=== PATIENT | female | born 1955 | race Caucasian/White ===

== ENCOUNTER 2016-07-10 19:12 | Emergency (ER) | payer OTHER ==
[~2016-07-10] VITALS: Ht 149.8 cm; Wt 72.6 kg
[~2016-07-10 19:12] MED LIST: ALBUTEROL0.09 MG/A2 IH; ANAPROX DS550 MG PO; CLARITIN10 MG PO; ESTERIFIED ESTR PO; FLONASE0.05 MG/AC NS; IBU-8800 MG PO; LEVAQUIN750 MG PO; LOMOTIL 0.025 M1 TAB PO; PEPCID20 MG PO; PREDNICOT20 MG PO; PREDNISONE20 MG PO; PREDNISONE50 MG PO; SINGULAIR10 MG PO; ULTRAM50 MG PO; ZOFRAN ODT8 MG PO
[2016-07-10] MEDS ORDERED: SYNTHROID25 MCG PO (19:41)
[2016-07-10] MEDS ORDERED: ZITHROMAX250 MG PO (21:51)
[2016-07-10] MEDS ORDERED: PREDNISONE20 M1 PO (21:51)
[2016-07-10] MEDS ORDERED: ZYRTEC-D 5 MG-11 TE1 PO (21:51)
[2016-07-10] MEDS ORDERED: MUCINEX DM 30/61 TAB PO (21:59)
[2016-07-10] MEDS ORDERED: TAMIFLU 75MG CA75 MG PO (22:09)
== END 2016-07-10 22:12 | disposition home or self-care (01) ==
LOC: ED 19:12
DX: J20.9 Acute bronchitis, unspecified (principal); J45.909 Unspecified asthma, uncomplicated; J32.9 Chronic sinusitis, unspecified; Z90.49 Acquired absence of other specified parts of digestive tract; Z90.711 Acquired absence of uterus with remaining cervical stump; Z88.0 Allergy status to penicillin; Z88.6 Allergy status to analgesic agent; Z88.8 Allergy status to other drugs, medicaments and biological substances; Z79.899 Other long term (current) drug therapy

== ENCOUNTER → 2016-10-13 | Outpatient (CLI) | payer OTHER ==
[~2016-10-13] MED LIST changes: +MUCINEX DM 30/61 TAB PO; +PREDNISONE20 M1 PO; +SYNTHROID25 MCG PO; +TAMIFLU 75MG CA75 MG PO; +ZITHROMAX250 MG PO; +ZYRTEC-D 5 MG-11 TE1 PO
== END | disposition home or self-care (01) ==
LOC: LAB 11:23
DX: E03.9 Hypothyroidism, unspecified (principal); E55.9 Vitamin D deficiency, unspecified

== ENCOUNTER 2022-03-11 11:48 | Inpatient (IN) | payer OTHER ==
[~2022-03-11] VITALS: Ht 149.9 cm; Wt 72.6 kg
[2022-03-11 12:00] VITALS: BP 155/95
[2022-03-11 13:07] LABS: BASO % 0.1 % (0.0-1.0); EOS % 0.3 % (1.0-4.0); HEMATOCRIT 43.9 % (37.0-47.0); LYMPH # 1.3 10*3/uL (1.3-4.4); LYMPH % 14.6 % (27.0-41.0); MEAN CELL VOLUME 87.8 fl (81.0-99.0); MEAN CORPUSCULAR HGB CONC 34.2 g/dl (33.0-37.0); MEAN PLATELET VOLUME 9.3 fl (9.6-12.3); MONO # 0.5 10*3/uL (0.1-1.0); MONO % 5.4 % (3.0-9.0); NEUT # 7.1 10*3/uL (2.3-7.9); NEUT % 79.4 % (47.0-73.0); PLATELET COUNT AUTOMATED 282 10*3/uL (130-400); RED CELL DISTRI WIDTH 12.8 % (0-14.5); WHITE BLOOD COUNT 8.9 10*3/uL (4.8-10.8)
[2022-03-11 13:23] LABS: ACT PARTIAL THROMBO TIME 25.6 SECONDS (20.0-32.1); INTERNATIONAL NORM RATIO 0.9 (2.0-3.5)
[2022-03-11 13:24] LABS: ALKALINE PHOSPHATASE 80 U/L (45-117); BUN 12 mg/dl (7-24); CHLORIDE 102 mmol/L (98-107); CREATININE 0.86 mg/dL (0.55-1.02); LIPASE 90 U/L (73-393); POTASSIUM 3.6 mmol/L (3.5-5.1); SGPT/ALT 21 U/L (12-78); SODIUM 136 mmol/L (136-145); TOTAL PROTEIN 7.9 gm/dL (6.4-8.2)
[2022-03-11 13:37] LABS: BILIRUBIN Negative (Negative); BLOOD Negative (Negative); CLARITY Clear (Clear); COLOR Yellow (Yellow); GLUCOSE Negative (Negative); KETONE 1+ (Negative); LEUKO ESTERASE Negative (Negative); NITRITE Negative (Negative); PH 5.5 (4.5-8.0); UROBILINOGEN 0.2 E.U./dl (0.0-1.0)
[2022-03-11 13:47] LABS: MUCOUS TRACE
[2022-03-11 18:15] VITALS: BP 154/74
[2022-03-11 20:00] VITALS: BP 170/73
[2022-03-11 22:30] VITALS: BP 148/86
[2022-03-12] VITALS: BP 158/81
[2022-03-12 06:29] LABS: BASO % 0.3 % (0.0-1.0); EOS # 0.1 10*3/uL (0.0-0.4); EOS % 0.7 % (1.0-4.0); HEMATOCRIT 40.2 % (37.0-47.0); LYMPH # 1.6 10*3/uL (1.3-4.4); LYMPH % 16.5 % (27.0-41.0); MEAN CELL VOLUME 89.3 fl (81.0-99.0); MEAN CORPUSCULAR HGB 30.7 pg (27.0-31.0); MEAN CORPUSCULAR HGB CONC 34.3 g/dl (33.0-37.0); MEAN PLATELET VOLUME 9.3 fl (9.6-12.3); MONO # 0.8 10*3/uL (0.1-1.0); MONO % 8.1 % (3.0-9.0); NEUT # 7.2 10*3/uL (2.3-7.9); NEUT % 74.1 % (47.0-73.0); PLATELET COUNT AUTOMATED 273 10*3/uL (130-400); RED CELL DISTRI WIDTH 12.8 % (0-14.5); WHITE BLOOD COUNT 9.7 10*3/uL (4.8-10.8)
[2022-03-12 06:34] LABS: ACT PARTIAL THROMBO TIME 24.9 SECONDS (20.0-32.1); INTERNATIONAL NORM RATIO 0.9 (2.0-3.5)
[2022-03-12 06:39] LABS: ALKALINE PHOSPHATASE 71 U/L (45-117); BUN 12 mg/dl (7-24); CHLORIDE 106 mmol/L (98-107); CHOLESTEROL 195 mg/dL (<200); CREATININE 0.73 mg/dL (0.55-1.02); FREE T4 1.07 ng/dl (0.76-1.46); LDL CHOLESTEROL 107 mg/dL (9-159); POTASSIUM 3.7 mmol/L (3.5-5.1); SGPT/ALT 17 U/L (12-78); SODIUM 139 mmol/L (136-145); TOTAL PROTEIN 6.9 gm/dL (6.4-8.2); TRIGLYCERIDES 126 mg/dl (<150)
[2022-03-12 06:44] LABS: THYROID STIM HORMONE (HS) 0.755 uIU/ml (0.358-4.75)
[2022-03-12 08:00] VITALS: BP 155/68
[2022-03-12 12:00] VITALS: BP 154/86
[2022-03-12 20:00] VITALS: BP 146/67
[2022-03-13] VITALS: BP 137/68
[2022-03-13 06:50] LABS: BASO % 0.4 % (0.0-1.0); EOS # 0.2 10*3/uL (0.0-0.4); LYMPH # 2.5 10*3/uL (1.3-4.4); LYMPH % 29.7 % (27.0-41.0); MEAN CELL VOLUME 89.8 fl (81.0-99.0); MEAN CORPUSCULAR HGB 30.8 pg (27.0-31.0); MEAN CORPUSCULAR HGB CONC 34.3 g/dl (33.0-37.0); MEAN PLATELET VOLUME 9.2 fl (9.6-12.3); MONO # 0.7 10*3/uL (0.1-1.0); MONO % 8.4 % (3.0-9.0); NEUT # 4.9 10*3/uL (2.3-7.9); NEUT % 59.3 % (47.0-73.0); PLATELET COUNT AUTOMATED 244 10*3/uL (130-400); RED BLOOD COUNT 4.12 10*6/uL (4.10-5.10); RED CELL DISTRI WIDTH 12.9 % (0-14.5); WHITE BLOOD COUNT 8.3 10*3/uL (4.8-10.8)
[2022-03-13 07:02] LABS: BUN 16 mg/dl (7-24); CHLORIDE 108 mmol/L (98-107); CREATININE 0.59 mg/dL (0.55-1.02); POTASSIUM 3.1 mmol/L (3.5-5.1); SODIUM 140 mmol/L (136-145)
[2022-03-13 08:00] VITALS: BP 151/74
[2022-03-13 12:00] VITALS: BP 130/51
[2022-03-13] MEDS ORDERED: ZESTRIL10 MG PO (12:28)
== END 2022-03-13 19:14 | disposition home or self-care (01) | DRG 389 ==
LOC: ED 11:48 → 5E 16:41 → EDHOLD 16:41 → 5E 17:35
PROVIDERS: Family Medicine; Student in an Organized Health Care Education/Training Program; ADMIT Internal Medicine; ATTEND Internal Medicine
PROC: 0D9670Z Drainage of Stomach with Drainage Device, Via Natural or Artificial Opening (ICD-10-PCS; principal; 2022-03-11)
DX: K56.50 Intestinal adhesions [bands], unspecified as to partial versus complete obstruction (principal); E44.0 Moderate protein-calorie malnutrition; J45.909 Unspecified asthma, uncomplicated; Z20.822 Contact with and (suspected) exposure to COVID-19; R73.9 Hyperglycemia, unspecified; E87.6 Hypokalemia; E78.5 Hyperlipidemia, unspecified; Z68.32 Body mass index [BMI] 32.0-32.9, adult; Z88.0 Allergy status to penicillin; Z88.2 Allergy status to sulfonamides; Z88.6 Allergy status to analgesic agent; Z91.041 Radiographic dye allergy status; Z90.49 Acquired absence of other specified parts of digestive tract; Z90.710 Acquired absence of both cervix and uterus

== ENCOUNTER 2022-09-10 11:12 | Emergency (ER) | payer OTHER ==
[~2022-09-10] VITALS: Ht 152.4 cm; Wt 63.5 kg
[~2022-09-10 11:12] MED LIST changes: +ZESTRIL10 MG PO
[2022-09-10 12:10] LABS: BILIRUBIN Negative (Negative); BLOOD Negative (Negative); CLARITY Clear (Clear); COLOR Yellow (Yellow); GLUCOSE Negative (Negative); KETONE Negative (Negative); LEUKO ESTERASE Negative (Negative); NITRITE Negative (Negative); SPECIFIC GRAVITY 1.025 (1.001-1.030); UROBILINOGEN 0.2 E.U./dl (0.0-1.0)
[2022-09-10 12:21] LABS: BACTERIA 2+; MUCOUS 3+
[2022-09-10 12:30] LABS: HEMATOCRIT 42.7 % (37.0-47.0); MEAN CELL VOLUME 90.3 fl (81.0-99.0); MEAN CORPUSCULAR HGB 30.9 pg (27.0-31.0); MEAN CORPUSCULAR HGB CONC 34.2 g/dl (33.0-37.0); MEAN PLATELET VOLUME 9.7 fl (9.6-12.3); PLATELET COUNT AUTOMATED 238 10*3/uL (130-400); RED BLOOD COUNT 4.73 10*6/uL (4.10-5.10); RED CELL DISTRI WIDTH 12.4 % (0-14.5); WHITE BLOOD COUNT 13.4 10*3/uL (4.8-10.8)
[2022-09-10 12:41] LABS: MANUAL DIFF REFLEX YES
[2022-09-10 12:51] LABS: TOTAL CELLS COUNTED 100 #CELLS
[2022-09-10 12:54] LABS: PLATELET SUFFICIENCY NORMAL (NORMAL)
[2022-09-10 12:55] LABS: ALKALINE PHOSPHATASE 58 U/L (46-116); BUN 13 mg/dl (9-23); CHLORIDE 103 mmol/L (98-107); LIPASE 29 U/L (12-53); POTASSIUM 4.4 mmol/L (3.4-5.1); SGPT/ALT 14 U/L (10-49); TOTAL PROTEIN 7.1 gm/dL (6.0-8.0)
[2022-09-10] MEDS ORDERED: CIPRO500 MG PO (13:10)
[2022-09-10] MEDS ORDERED: ONDANSETRON4 MG SL (13:10)
== END 2022-09-10 13:23 | disposition home or self-care (01) ==
LOC: ED 11:12
PROVIDERS: Nurse Practitioner Family
DX: N39.0 Urinary tract infection, site not specified (principal); R11.10 Vomiting, unspecified; E03.9 Hypothyroidism, unspecified; I10 Essential (primary) hypertension; Z88.0 Allergy status to penicillin; Z88.1 Allergy status to other antibiotic agents; Z88.6 Allergy status to analgesic agent; Z79.899 Other long term (current) drug therapy; Z90.49 Acquired absence of other specified parts of digestive tract; Z90.710 Acquired absence of both cervix and uterus

== ENCOUNTER 2024-06-09 22:13 | Emergency (ER) | payer OTHER ==
[~2024-06-09] VITALS: Ht 144.7 cm; Wt 59.0 kg
[~2024-06-09 22:13] MED LIST changes: +CIPRO500 MG PO; +ONDANSETRON4 MG SL
[2024-06-10] MEDS ORDERED: traMADol Hydrochloride 50 MG TAB PO ONE (00:05)
[2024-06-10] MEDS ORDERED: TRAMADOL HCL50 MG PO (01:01)
== END 2024-06-10 01:13 | disposition home or self-care (01) ==
LOC: ED 22:13
DX: S46.911A Strain of unspecified muscle, fascia and tendon at shoulder and upper arm level, right arm, initial encounter (principal); I10 Essential (primary) hypertension; J45.909 Unspecified asthma, uncomplicated; E78.5 Hyperlipidemia, unspecified; E87.6 Hypokalemia; Z88.0 Allergy status to penicillin; Z88.6 Allergy status to analgesic agent; Z91.041 Radiographic dye allergy status; Z88.8 Allergy status to other drugs, medicaments and biological substances; Z90.711 Acquired absence of uterus with remaining cervical stump; Z90.49 Acquired absence of other specified parts of digestive tract; W00.0XXA Fall on same level due to ice and snow, initial encounter; Y93.89 Activity, other specified; Y92.89 Other specified places as the place of occurrence of the external cause; Y99.8 Other external cause status